=== PATIENT | male | born 2000 | race Caucasian/White ===

== ENCOUNTER 2023-02-07 10:14 | Emergency (ER) | payer SELFPAY ==
[2023-02-07] MEDS ORDERED: Dexamethasone 4 MG Tab PO STA (11:47)
== END 2023-02-08 12:36 | disposition home or self-care (01) ==
LOC: MW.ED 10:14
DX: J32.9 Chronic sinusitis, unspecified (principal)
CPT/HCPCS: 99282; J8540; 99283

== ENCOUNTER 2023-09-23 18:41 | Emergency (ER) | payer SELFPAY ==
[2023-09-23] MEDS: Octyl 2-Cyanoacrylate 1 g/1 mL 1 APPLIC PEN TOP ONE (20:48)
[2023-09-23] MEDS: Lidocaine 1% 5 ML VIAL INJECT ONE (20:48)
== END 2023-09-24 21:10 | disposition home or self-care (01) ==
LOC: MW.ED 18:41
DX: S61.214A Laceration without foreign body of right ring finger without damage to nail, initial encounter (principal); S61.216A Laceration without foreign body of right little finger without damage to nail, initial encounter; Z75.8 Other problems related to medical facilities and other health care; W26.8XXA Contact with other sharp object(s), not elsewhere classified, initial encounter
CPT/HCPCS: 12001; 99283; A9270; J3490